=== PATIENT | female | born 1985 | race Caucasian/White ===

== ENCOUNTER → 2017-08-05 | Outpatient (CLI) | payer MEDICAID ==
--- NOTE | 2017-08-05 23:39 | MR ---
EXAMINATION TYPE: MR lumbar spine wo con DATE OF EXAM: 08/05/2017 COMPARISON: NONE HISTORY: LBP, yao leg numbness x 2-3 months TECHNIQUE: Multiplanar, multisequence images of the lumbar spine were acquired. There is L5 spondylolysis. There is 6 mm L5-S1 spondylolisthesis. There is no spinal stenosis. Lumbar nerve roots appear normal. Neural foramina are fairly well-maintained. There is no lumbar disc herni ation. I see no focal bone destruction. There is no lumbar paraspinal mass. Sacroiliac joints appear normal. Disc spaces overall are fairly well-maintained. IMPRESSION: There is L5 spondylolysis with mild first-degree L5-S1 spondylolisthesis. No disc herniation. No spin al stenosis.
== END | disposition home or self-care (01) ==
LOC: RADMRIMAIN 20:20
PROVIDERS: ATTEND Family Medicine
DX: M43.17 Spondylolisthesis, lumbosacral region (principal); M47.896 Other spondylosis, lumbar region
CPT/HCPCS: 72148

== ENCOUNTER 2017-08-19 09:19 | Emergency (ER) | payer MEDICAID ==
[2017-08-19 09:25] VITALS: TEMP 98.6
[2017-08-19] MEDS ORDERED: SODIUM CHLORIDE 0.9% 1,000 ML IV ONE (10:05)
[2017-08-19] MEDS ORDERED: RX INFO: IV CONTRAST WAS GIVEN 1 EACH MISC MISCELLANE PRN (10:05)
[2017-08-19 10:35] LABS: Basophils % (A) 0 %; Eosinophils # (A) 0.2 k/uL (0-0.7); Eosinophils % (A) 4 %; HCT 34.9 % (34.0-46.0); HGB 11.4 gm/dL (11.4-16.0); Lymphocytes # (A) 1.6 k/uL (1.0-4.8); Lymphocytes % (A) 32 %; MCHC 32.6 g/dL (31.0-37.0); MCV 82.8 fL (80.0-100.0); Mean Platelet Volume 7.9; Monocytes # (A) 0.3 k/uL (0-1.0); Monocytes % (A) 6 %; Neutrophils # (A) 2.7 k/uL (1.3-7.7); Neutrophils % (A) 54 %; Platelet Count 279 k/uL (150-450); RBC 4.21 m/uL (3.80-5.40); RDW 14.7 % (11.5-15.5); WBC 4.9 k/uL (3.8-10.6)
[2017-08-19 10:40] LABS: HCG,Qualitative Serum Not Detected
[2017-08-19 10:43] LABS: Anion Gap 9 mmol/L; Blood Urea Nitrogen 11 mg/dL (7-17); Calcium 9.6 mg/dL (8.4-10.2); Carbon Dioxide 27 mmol/L (22-30); Chloride 104 mmol/L (98-107); Glucose 96 mg/dL (74-99); Potassium 3.9 mmol/L (3.5-5.1); Sodium 140 mmol/L (137-145)
--- NOTE | 2017-08-19 11:42 | CT ---
EXAMINATION TYPE: CT brain wo con DATE OF EXAM: 08/19/2017 COMPARISON: NONE HISTORY: Right sided lower facial numbness CT DLP: 926.50 mGycm. Automated Exposure Control for Dose Reduction was Utilized. TECHNIQUE: CT scan of the head is performed without contrast. FINDINGS: There is no acute intracranial hemorrhage, mass effect, or midline shift identified. The ventricles and sulci are within normal limits in size. The globes are intact and the visualized sin uses are clear. IMPRESSION: No acute intracranial hemorrhage, mass effect, or midline shift is seen. If there is con cern for acute ischemia correlate with MRI as clinically warranted.
--- NOTE | 2017-08-19 11:52 | CT ---
EXAMINATION TYPE: CT angio head neck DATE OF EXAM: 08/19/2017 HISTORY: Right sided lower facial numbness COMPARISON: NONE CT DLP: 492.50 mGycm. Automated Exposure Control for Dose Reduction was Utilized. TECHNIQUE: CTA scan of the neck is performed with IV Contrast, patient injected with 65 mL of Omnipa que 350, axial images are obtained, coronal and sagittal reformatted images are reviewed. Three-D rec onstructed images are created on an independent workstation and reviewed. FINDINGS: Carotid arteries are patent. Carotid bifurcation patent bilaterally. Right vertebral artery appears dominant. Vertebrobasilar system is patent. Evaluation the [place] demonstrates no evidence of aneurysm. IMPRESSION: No significant abnormality is seen.
--- NOTE | 2017-08-19 13:22 | ED ---
General Adult HPI - General Chief complaint: Neuro Symptoms/Deficit Stated complaint: facial numbness Time Seen by Provider: 08/19/17 09:53 Source: patient Mode of arrival: ambulatory Limitations: no limitations - History of Present Illness Initial comments: Patient is a 32-year-old female presents with a chief complaint of neurological problems. The patient states that over the last 3 months or so, her right posterior calf has been no trauma. Patient has been seen by her primary care doctor regarding this issue, had an EMG, and an x-ray of the lumbar spine. She was ultimately diagnosed with arthritis. The patient states though that for about 2 days or so, she has been having burning type pain on her lateral right thigh, and today noticed that she had paresthesias of her right lower face. Patient states that she does not notice any motor deficit. She is able to phonate properly without any difficulty. She is not slurring her words, patient is not having any difficulties with coordination. The patient cannot identify inciting incident. There are no aggravating or alleviating factors. Timing is constant. Patient does not have any other medical history, she had her IUD removed yesterday. - Related Data Home Medications Medication Instructions Recorded Confirmed Multivitamins, Thera [Multivitamin 1 tab PO DAILY 08/19/17 08/19/17 (formulary)] Allergies Allergy/AdvReac Type Severity Reaction Status Date / Time No Known Allergies Allergy Verified 08/19/17 10:01 Review of Systems ROS Statement: Those systems with pertinent positive or pertinent negative responses have been documented in the HPI. ROS Other: All systems not noted in ROS Statement are negative. Neurological: Reports: paresthesias Past Medical History Additional Past Medical History / Comment(s): arthritis L5/L4 History of Any Multi-Drug Resistant Organisms: None Reported Past Surgical History: Orthopedic Surgery Additional Past Surgical History / Comment(s): right arm and right wrist Past Psychological History: No Psychological Hx Reported Smoking Status: Never smoker Past Alcohol Use History: Occasional Past Drug Use History: None Reported General Exam Limitations: no limitations General appearance: alert, in no apparent distress Head exam: Present: atraumatic, normocephalic Eye exam: Present: normal appearance, PERRL, EOMI. Absent: nystagmus Pupils: Present: normal accommodation ENT exam: Present: normal exam, mucous membranes moist Neck exam: Present: normal inspection. Absent: tenderness, meningismus Respiratory exam: Present: normal lung sounds bilaterally. Absent: respiratory distress, wheezes Cardiovascular Exam: Present: regular rate, normal rhythm GI/Abdominal exam: Present: soft. Absent: distended, tenderness Rectal exam: Present: deferred Extremities exam: Present: other (Patient has some engorgement of her superficial veins bilaterally on the lower extremities however the right appears to be somewhat worse than the left. When questioned, the patient states that this is been this way since her last ). Absent: calf tenderness Back exam: Present: normal inspection Neurological exam: Present: alert, oriented X3, CN II-XII intact, normal gait, other (Patient has no focal neurological deficits, patient is able to discriminate palpation of the face, she states that her deficit on her right side is more of a tingling. Patient is able to do without abnormality, Romberg is negative. Cerebellar testing is within normal limits.). Absent: abnormal gait, motor sensory deficit Psychiatric exam: Present: normal affect, normal mood Skin exam: Present: warm, dry, intact Course Vital Signs 08/19/17 09:21 Temperature 98.6 F Pulse Rate 80 Respiratory 17 Rate Blood Pressure 129/83 O2 Sat by Pulse 100 Oximetry Medical Decision Making - Medical Decision Making Patient presents with a chief complaint of paresthesias of the face and other neurological issues. On initial evaluation, vital signs are stable, patient is in no acute distress. Patient will be evaluated basic labs, test, d- dimer, and CT of the head with and without contrast. Neurologic testing is normal, there is no deficit on initial exam. Given patient's presentation, zoster was considered however there is no rash on the skin, tympanic membranes are normal bilaterally, patient does not have any lesions on the face or intraorally. 1:19 PM Lab evaluation of this patient is unremarkable. Computed tomography scan of the head without contrast shows no acute process. Follow-up CT angiogram of the head and neck showed patent vessels without any abnormalities or evidence of aneurysms. I discussed these findings with the patient. Repeat neuro exam is unchanged. At this time, the patient is reassured that there doesn't appear to be any life-threatening processes taken place. The patient was instructed to follow-up with her primary care doctor and will be supplied with contact information for neurology for neural follow-up. At this time she had her are agreeable with this care plan. Patient was instructed to return to the emergency department if symptoms worsen or change. - Lab Data Result diagrams: 08/19/17 10:20 08/19/17 10:20 Lab Results 08/19/17 08/19/17 08/19/17 Range/Units 10:20 10:20 10:20 WBC 4.9 (3.8-10.6) k/uL RBC 4.21 (3.80-5.40) m/uL Hgb 11.4 (11.4-16.0) gm/dL Hct 34.9 (34.0-46.0) % MCV 82.8 (80.0-100.0) fL MCH 27.0 (25.0-35.0) pg MCHC 32.6 (31.0-37.0) g/dL RDW 14.7 (11.5-15.5) % Plt Count 279 (150-450) k/uL Neutrophils % 54 % Lymphocytes % 32 % Monocytes % 6 % Eosinophils % 4 % Basophils % 0 % Neutrophils # 2.7 (1.3-7.7) k/uL Lymphocytes # 1.6 (1.0-4.8) k/uL Monocytes # 0.3 (0-1.0) k/uL Eosinophils # 0.2 (0-0.7) k/uL Basophils # 0.0 (0-0.2) k/uL D-Dimer 0.25 (<0.60) mg/L FEU Sodium 140 (137-145) mmol/L Potassium 3.9 (3.5-5.1) mmol/L Chloride 104 (98-107) mmol/L Carbon Dioxide 27 (22-30) mmol/L Anion Gap 9 mmol/L BUN 11 (7-17) mg/dL Creatinine 0.68 (0.52-1.04) mg/dL Est GFR (CKD-EPI)AfAm >90 (>60 ml/min/1.73 sqM) Est GFR (CKD-EPI)NonAf >90 (>60 ml/min/1.73 sqM) Glucose 96 (74-99) mg/dL Calcium 9.6 (8.4-10.2) mg/dL HCG, Qual Not Detected Disposition Clinical Impression: Paresthesia Disposition: HOME SELF-CARE Condition: Good Instructions: Meralgia Paresthetica (ED), Paresthesia (ED) Additional Instructions: Follow-up with her primary care doctor and neurology in 1-2 days, return to the emergency department in 12-24 hours for reevaluation if your symptoms worsen or change Referrals: Duke Nieves MD [Primary Care Provider] - 1-2 days Brooklyn Reynoso MD [STAFF PHYSICIAN] - 1-2 days
[2017-08-19 13:41] VITALS: BP 103/57; PULSE 64; RESP 16
== END 2017-08-19 13:41 | disposition home or self-care (01) ==
LOC: EC 09:19
DX: R20.2 Paresthesia of skin (principal)
CPT/HCPCS: 36415; 85379; 80048; 85025; 84703; 70496; 70450; 70498; 99284; 96360; 96361 ×2; Q9967

== ENCOUNTER → 2017-08-26 | Outpatient (CLI) | payer MEDICAID ==
--- NOTE | 2017-08-26 18:15 | US ---
EXAMINATION TYPE: US pelvic complete DATE OF EXAM: 08/26/2017 COMPARISON: NONE CLINICAL HISTORY: Pelvic pain R10.2. Pelvic pain after having IUD removed last week TECHNIQUE: . Transabdominal sonographic images of the pelvis were acquired. Date of LMP: 08/10/2017 EXAM MEASUREMENTS: Uterus: 6.9 x 3.7 x 5.4 cm Endometrial Stripe: 0.9 cm Right Ovary: 3.1 x 1.3 x 1.2 cm Left Ovary: 3.1 x 2.4 x 1.8 cm 1. Uterus: Anteverted wnl 2. Endometrium: wnl 3. Right Ovary: Multiple follicles visualized 4. Left Ovary: wnl 5. Bilateral Adnexa: wnl 6. Posterior cul-de-sac: wnl IMPRESSION: 1. Endometrium measures 9 mm and is slightly heterogeneous which could be secondary to recent procedu re. No fluid within the endometrium. No free fluid within the pelvis. Correlate clinically..
== END | disposition home or self-care (01) ==
LOC: RADUSWWP 15:34
PROVIDERS: ATTEND Obstetrics & Gynecology
DX: N85.8 Other specified noninflammatory disorders of uterus (principal)
CPT/HCPCS: 76856

== ENCOUNTER → 2017-09-07 | Outpatient (CLI) | payer MEDICAID ==
--- NOTE | 2017-09-07 07:44 | MR ---
EXAMINATION TYPE: MR brain wo/w con DATE OF EXAM: 09/07/2017 COMPARISON: CT brain 08/19/2017 HISTORY: Paresthesias, numbness in face and legs TECHNIQUE: Multiplanar, multisequence images of the brain and brainstem is performed without and with IV contras t, utilizing 5.5 mL intravenous Gadavist . FINDINGS: Diffusion weighted images demonstrate no evidence of a recent infarct or other diffusion ab normality. There is no extra-axial fluid collection or significant white matter signal abnormality. The ventricular system and cisternal spaces are normal in size and appearance. The brain volume is age appropriate. Midline structures demonstrate normal morphology. The craniocervical junction appears within normal limits. Post contrast images demonstrate no abnormal enhancement. The dural venous sinuses appear pa tent. White matter: Single punctate 2 mm tiny focus of abnormal signal the left parietal white matter. IMPRESSION: 1. No acute process. Single tiny focus measuring 2 mm of abnormal signal the white matter of the left parietal lobe of doubtful significance.
== END | disposition home or self-care (01) ==
LOC: RADMRIMAIN 06:46
PROVIDERS: ATTEND Psychiatry & Neurology Neurology
DX: R20.2 Paresthesia of skin (principal)
CPT/HCPCS: 70553; A9581

== ENCOUNTER → 2017-10-19 | Outpatient (CLI) | payer MEDICAID ==
--- NOTE | 2017-10-19 16:05 | US ---
EXAMINATION TYPE: Transabdominal DATE OF EXAM: 09/13/17 COMPARISON: NONE CLINICAL HISTORY: Z36 CONFIRM DATES. LMP unknown EXAM PERFORMED: Transvaginal (TV) and Transabdominal (TA). Transvaginal imaging added to better asse ss pole EXAM MEASUREMENTS: GESTATIONAL AGE / DATING Physician Established: Not yet established Dates by LMP: LMP unknown Dates by First Scan: No previous this is first scan Dates by Current Scan for: (6 weeks/2 days) EDC: 06/12/2018 MATERNAL ANATOMY Uterus: 8.8 x 4.9 x 6.2 cm Right Ovary: 3.2 x 1.9 x 1.7 cm Left Ovary: 2.8 x 1.6 x 3.1 cm Post CDS / Adnexa: Small amount of fluid visualized adjacent to the right ovary Presence of free fluid: Yes Presence of corpus luteal cyst: Yes, right ovary measuring 2.1 x 1.4 x 1.5 cm Presence of subchorionic bleed: No GESTATION / SURVEY CRL: 0.54 cm (6 weeks/2 days) Yolk Sac (normal less than 6mm): 2.8 mm Heart Rate: 124 bpm Rhythm: Normal IUP: Viable IUP Date of LMP: Unknown Beta HcG (if available): Not available Live IUP with an SUSHANT of 06/12/2018. Probable corpus luteal cyst visualized right ovary measuring 2.1 x 1.4 x 1.5 cm IMPRESSION: Single live intrauterine with an estimated date of delivery of 06/12/2018 and sonographic a ge of 6 weeks and 2 days.
== END | disposition home or self-care (01) ==
LOC: RADUSWWP 15:00
PROVIDERS: ATTEND Obstetrics & Gynecology
DX: Z36.89 Encounter for other specified antenatal screening (principal); Z3A.01 Less than 8 weeks gestation of pregnancy
CPT/HCPCS: 76801; 76817

== ENCOUNTER → 2017-11-14 | Outpatient (CLI) | payer MEDICAID ==
[2017-11-14 13:12] LABS: HCT 35.8 % (34.0-46.0); HGB 12.1 gm/dL (11.4-16.0); MCH 27.8 pg (25.0-35.0); MCHC 33.8 g/dL (31.0-37.0); MCV 82.3 fL (80.0-100.0); Mean Platelet Volume 7.5; Platelet Count 293 k/uL (150-450); RBC 4.35 m/uL (3.80-5.40); RDW 15.4 % (11.5-15.5); WBC 7.5 k/uL (3.8-10.6)
[2017-11-14 13:17] LABS: Glucose 102 mg/dL (74-99)
[2017-11-14 19:53] LABS: HIV AB P24 Non-Reactive (Non-Reactive); HIV P24 AG Non-Reactive (Non-Reactive)
[2017-11-15 05:08] LABS: Toxoplasma Antibody (IgG) <3.0 IU/mL (<7.2); Toxoplasma Antibody (IgM) <3.0 AU/mL (<8.0)
== END | disposition home or self-care (01) ==
LOC: LABWHC1 12:13
PROVIDERS: ATTEND Obstetrics & Gynecology
DX: O26.811 Pregnancy related exhaustion and fatigue, first trimester (principal); Z3A.00 Weeks of gestation of pregnancy not specified
CPT/HCPCS: 36415; 82565; 82947; 85027; 86762; 86777; 86778; 86780; 86850; 86900; 86901; 87340; 87390

== ENCOUNTER → 2017-11-30 | Outpatient (CLI) | payer MEDICAID ==
--- NOTE | 2017-11-30 17:56 | US ---
EXAMINATION TYPE: Transabdominal DATE OF EXAM: 09/13/17 COMPARISON: US 10/19/2017 CLINICAL HISTORY: O46.91 Bleeding 1st trimester. EXAM PERFORMED: Transabdominal (TA) EXAM MEASUREMENTS: GESTATIONAL AGE / DATING Physician Established: (12 weeks/2 days) EDC: 06/12/2018 Dates by LMP: LMP unknown Dates by First Scan: (12 weeks/2 days) EDC: 06/12/2018 Dates by Current Scan for: (13 weeks/0 days) EDC: 06/07/2018 MATERNAL ANATOMY Uterus: 11.0 x 8.6 x 9.3 cm Right Ovary: 2.3 x 1.7 x 1.9 cm Left Ovary: 3.2 x 1.5 x 1.8 cm Post CDS / Adnexa: wnl Presence of free fluid: No Presence of corpus luteal cyst: No Presence of subchorionic bleed: No GESTATION / SURVEY CRL: 6.7 cm (13 weeks/0 days) Heart Rate: 152 bpm Rhythm: Normal IUP: Viable IUP Date of LMP: Unknown Beta HcG (if available): Not available at this time Viable IUP with an SUSHANT of 06/07/2018 by this exam. IMPRESSION: There is satisfactory growth compared to last exam. No complicating process seen.
== END | disposition home or self-care (01) ==
LOC: RADUSMAIN 17:21
PROVIDERS: ATTEND Obstetrics & Gynecology
DX: O46.91 Antepartum hemorrhage, unspecified, first trimester (principal); Z3A.00 Weeks of gestation of pregnancy not specified
CPT/HCPCS: 76801

== ENCOUNTER → 2018-01-16 | Outpatient (CLI) | payer MEDICAID ==
--- NOTE | 2018-01-16 14:54 | US ---
EXAMINATION TYPE: US OB anatomy transabd DATE OF EXAM: 01/16/2018 COMPARISON: 11/30/2017 HISTORY: 32-year-old female O36.62XO Large for dates, 2nd Trimester Anatomy, TECHNIQUE: Transabdominal (TA) FINDINGS: EXAM MEASUREMENTS: GESTATIONAL AGE / DATING Physician Established: (19 weeks/6 days) EDC: 06/06/2018 (EDC previously reported as 06/12/2018 on the 11/30/2017 study) Dates by Current Scan for: (18 weeks/5 days) EDC: 06/14/2018 SURVEY IUP: Single PLACENTA: Anterior PREVIA: No previa JAZZY: 11.2 cm Normal CERVICAL LENGTH (transabdominal: norm > 3.0cm): 3.8 cm BIOMETRY PRESENTATION: Variable LIE: Transverse lie with head to maternal left BPD: 4.2 cm 18 weeks / 6 days HC: 16.0 cm 18 weeks / 6 days AC: 13.3 cm 18 weeks / 5 days FL: 2.9 cm 18 weeks / 6 days ESTIMATED WEIGHT IN GRAMS: 258.0 grams ESTIMATED WEIGHT IN LBS/OZ: 0 lbs. 9 oz. WEIGHT PERCENTAGE BASED ON ESTABLISHED DATE: 5.8 % HC/AC: 1.2 Normal FL/AC: 21.6 HEART RATE: 142 bpm RHYTHM: Normal ANATOMY SEEN (within normal limits): Lateral Vent (< 1 cm) 0.7 cm Cisterna Magna (< 1.1 cm) 0.4 cm Nuchal Fold (< 0.6 cm) 0.4 cm Cerebellum (varies with age) 1.9 cm Choroid Plexus (bilateral) Midline Falx Cavus Septi Pellucidi Four Chamber Heart Outflow tracts: LVOT/RVOT Stomach Situs Nose / Lips Diaphragm Kidneys (bilateral) (one of the renal pelves measure 1.3 mm, within normal limits) Bladder Cord Insert Three Vessel Cord Longitudinal Spine Transverse Spine Arms (bilateral) Legs (bilateral) ANATOMY SEEN (does not appear within normal limits): ANATOMY NOT SEEN: Single live IUP measuring 18 weeks 5 days IMPRESSION: 1. Single live intrauterine . The reported established gestational age is 19 weeks 6 days (E DC 06/06/2018). We note that the previously reported EDC on 11/30/2017 was different by 6 days (EDC ). 2. Utilizing the currently reported established gestational age, EFW is at the 6th percentile (with f etal biometry placing the gestation at 18 weeks 5 days). Correlate as to if the provided information is correct. Follow-up to assess for appropriate interval growth as clinically indicated. 3. The survey is complete. Visualized structures appear normal.
== END | disposition home or self-care (01) ==
LOC: RADUSWWP 11:06
PROVIDERS: ATTEND Obstetrics & Gynecology
DX: O36.62X0 Maternal care for excessive fetal growth, second trimester, not applicable or unspecified (principal); Z3A.19 19 weeks gestation of pregnancy
CPT/HCPCS: 76811

== ENCOUNTER → 2018-03-08 | Outpatient (CLI) | payer MEDICAID ==
[2018-03-08 10:16] LABS: HGB 11.2 gm/dL (11.4-16.0); MCH 31.4 pg (25.0-35.0); MCHC 32.8 g/dL (31.0-37.0); MCV 95.7 fL (80.0-100.0); Mean Platelet Volume 7.5; Platelet Count 227 k/uL (150-450); RBC 3.55 m/uL (3.80-5.40); RDW 13.7 % (11.5-15.5); WBC 8.8 k/uL (3.8-10.6)
== END | disposition home or self-care (01) ==
LOC: LABWHC1 08:31
PROVIDERS: ATTEND Obstetrics & Gynecology
DX: Z34.82 Encounter for supervision of other normal pregnancy, second trimester (principal); Z3A.00 Weeks of gestation of pregnancy not specified
CPT/HCPCS: 36415; 82950; 85027

== ENCOUNTER → 2018-03-14 | Outpatient (CLI) | payer MEDICAID ==
[2018-03-14 12:57] LABS: Glucose 3 Hour, Gest 102 mg/dL
== END | disposition home or self-care (01) ==
LOC: LABWHC1 08:36
PROVIDERS: ATTEND Obstetrics & Gynecology
DX: O99.810 Abnormal glucose complicating pregnancy (principal); Z3A.00 Weeks of gestation of pregnancy not specified
CPT/HCPCS: 36415; 82951; 82952

== ENCOUNTER → 2018-03-20 | Outpatient (CLI) | payer MEDICAID ==
--- NOTE | 2018-03-20 14:49 | US ---
EXAMINATION TYPE: US OB anatomy transabd DATE OF EXAM: 03/20/2018 COMPARISON: 01/16/2018 HISTORY: [id number] care for excessive growth, Anatomy per order. . S>D TECHNIQUE: Transabdominal (TA) EXAM MEASUREMENTS: GESTATIONAL AGE / DATING Physician Established: (28weeks/2 days) EDC: 06/10/2018 Dates by Current Scan for: (28weeks/0 days) EDC: 06/12/2018 SURVEY IUP: Single PLACENTA: Anterior PREVIA: No previa JAZZY: 14.9 Normal CERVICAL LENGTH (transabdominal: norm > 3.0cm): 3.3m BIOMETRY PRESENTATION: Vertex LIE: Longitudinal BPD: 7.0cm 28 weeks / 0 days HC: 25.6 cm 28 weeks / 0 days AC: 23.5 cm 27 weeks / 6 days FL: 5.5 cm 29 weeks / 0 days ESTIMATED WEIGHT IN GRAMS: 1197 grams ESTIMATED WEIGHT IN LBS/OZ: 2 lbs. 10 oz. WEIGHT PERCENTAGE BASED ON ESTABLISHED DATE: 35.2 % HC/AC: 1.1 Normal FL/AC: 23.4 Normal HEART RATE: 132 bpm RHYTHM: Normal ANATOMY SEEN (within normal limits): * Lateral Vent (< 1 cm) 0.3 cm * Cisterna Magna (< 1.1 cm) 0.5 cm * Cerebellum (varies with age) 3.1 cm Choroid Plexus (bilateral) Midline Falx Cavus Septi Pellucidi Four Chamber Heart Outflow tracts: LVOT/RVOT Stomach Situs Nose / Lips Diaphragm Kidneys (bilateral) Bladder Cord Insert Three Vessel Cord Longitudinal Spine Transverse Spine Arms (bilateral) Legs (bilateral) ANATOMY SEEN (does not appear within normal limits): ANATOMY NOT SEEN: * Nuchal Fold (< 0.6 cm) due to gestational age Single live IUP measuring 28 weeks 0 days IMPRESSION: Single live intrauterine with a sonographic age of 28 weeks and 0 days concordant with the physician established dates. Weight percentage based on established dates of 35%. Note the nuchal fol d is not seen due to gestational age.
== END | disposition home or self-care (01) ==
LOC: RADUSWWP 13:27
PROVIDERS: ATTEND Obstetrics & Gynecology
DX: O36.63X0 Maternal care for excessive fetal growth, third trimester, not applicable or unspecified (principal); Z3A.28 28 weeks gestation of pregnancy
CPT/HCPCS: 76811

== ENCOUNTER → 2018-05-09 | Outpatient (CLI) | payer MEDICAID ==
--- NOTE | 2018-05-09 16:30 | US ---
EXAMINATION TYPE: US OB anatomy transabd DATE OF EXAM: 05/09/2018 COMPARISON: HISTORY: O36.63X0 Large for dates third trimester Anatomy per order. S>D TECHNIQUE: Transabdominal (TA) EXAM MEASUREMENTS: GESTATIONAL AGE / DATING Physician Established: (35 weeks/3 days) EDC: 06/10/2018 Dates by Current Scan for: (34 weeks/6 days) EDC: 06/14/2018 SURVEY IUP: Single PLACENTA: Fundal/Anterior PREVIA: No previa JAZZY: cm CERVICAL LENGTH (transabdominal: norm > 3.0cm): 3.4 cm BIOMETRY PRESENTATION: Vertex BPD: 8.4 cm 33 weeks / 6 days HC: 30.8 cm 34 weeks / 3 days AC: 31.6 cm 35 weeks / 4 days FL: 6.9 cm 35 weeks / 3 days ESTIMATED WEIGHT IN GRAMS: 2615 grams ESTIMATED WEIGHT IN LBS/OZ: 5 lbs. 12 oz. WEIGHT PERCENTAGE BASED ON ESTABLISHED DATE: 41 % HC/AC: 1.0 Normal FL/AC: 22% Normal HEART RATE: 124 bpm RHYTHM: Normal ANATOMY SEEN (within normal limits): Cavus Septi Pellucidi Four Chamber Heart Outflow tracts: LVOT/RVOT Stomach Situs Nose / Lips Diaphragm Kidneys (bilateral) Bladder Three Vessel Cord ANATOMY SEEN (does not appear within normal limits): ANATOMY NOT SEEN: DUE TO LATE GESTATIONAL AGE * Lateral Vent * Cisterna Magna * Cerebellum Choroid Plexus (bilateral) Midline Falx Longitudinal Spine Transverse Spine Arms (bilateral) Legs (bilateral) Cord Insert Live single IUP measuring 34 weeks 6 days. Entire anatomy not visualized due to late gestational age IMPRESSION: 1. Single intrauterine gestation estimated at 34 weeks 6 days based on current ultrasound measurement s. 2. Cardiac activity measures 124 bpm. 3. Due to the late gestational age, small parts evaluation is limited.
== END ==
LOC: RADUSWWP 10:53
PROVIDERS: ATTEND Obstetrics & Gynecology
DX: O36.63X0 Maternal care for excessive fetal growth, third trimester, not applicable or unspecified (principal); Z3A.34 34 weeks gestation of pregnancy
CPT/HCPCS: 76811

== ENCOUNTER 2018-06-08 06:00 | Inpatient (IN) | payer MEDICAID ==
--- NOTE | 2018-06-07 20:09 | P.HPOB ---
History of Present Illness H&P Date: 06/07/18 Chief Complaint: Induction of labor This is a 32-year-old female 4 para 3 with an estimated date of confinement of 06/10/2018, estimated gestational age of 39-5/7 weeks, who presents for induction of labor. She admits to good movement. She denies any rupture of membranes. course is been essentially uncomplicated. labs: GC/comment-negative Hepatitis B surface antigen-negative Rubella-immune Syphilis antibody-negative nonreactive HIV-nonreactive Toxoplasma-negative Random glucose-102 Hemoglobin-12.1 Blood type-A+ Antibody screen-negative Obstetrical ultrasound-normal anatomy One hour Glucola-154ay Three-hour Glucola-within normal limits Group B streptococcus-negative Obstetrical history: . History of 3 vaginal deliveries. Gynecologic history: No history of sexually transmitted diseases. Social history: She is . She works at [employer] Review of Systems Constitutional: Denies chills, Denies fever Eyes: denies blurred vision, denies pain Ears, nose, mouth and throat: Denies headache, Denies sore throat Cardiovascular: Denies chest pain, Denies shortness of breath Gastrointestinal: Reports abdominal pain (irregular contractions), Denies diarrhea, Denies nausea, Denies vomiting Genitourinary: Reports pelvic pain, Reports Musculoskeletal: Reports low back pain Neurological: Reports numbness, Reports weakness Past Medical History Past Medical History: Neurologic Disorder Additional Past Medical History / Comment(s): arthritis L5/L4 History of Any Multi-Drug Resistant Organisms: None Reported Past Surgical History: Orthopedic Surgery Additional Past Surgical History / Comment(s): right arm and right wrist Past Anesthesia/Blood Transfusion Reactions: No Reported Reaction Past Psychological History: No Psychological Hx Reported Smoking Status: Never smoker Past Alcohol Use History: Occasional Past Drug Use History: None Reported - Past Family History Father Additional Family Medical History / Comment(s): Heart Disease Mother Family Medical History: Diabetes Mellitus Medications and Allergies Home Medications Medication Instructions Recorded Confirmed Type Multivitamins, Thera [Multivitamin 1 tab PO DAILY 08/19/17 08/19/17 History (formulary)] Allergies Allergy/AdvReac Type Severity Reaction Status Date / Time No Known Allergies Allergy Verified 08/19/17 10:01 Exam Osteopathic Statement: *. No significant issues noted on an osteopathic structural exam other than those noted in the History and Physical/Consult. HEENT: Within normal limits Heart: Regular rate and rhythm Lungs: Clear to auscultation bilaterally Abdomen: Cervix: 3-1/2 cm/80%/-2 station heart tones: 140s by Doppler Extremities: Negative Homans Assessment and Plan (1) 39 weeks gestation of Status: Acute Code(s): Z3A.39 - 39 WEEKS GESTATION OF SNOMED Code( s): 59658038 Plan: Proceed with oxytocin induction of labor. Epidural anesthesia if desired. Expectant management.
[2018-06-08] MEDS ORDERED: OXYTOCIN 10 UNIT/ML 1 ML VIAL IM PRN (06:12)
[2018-06-08] MEDS ORDERED: CARBOPROST TROMETHAMINE 250 MCG/ML 1 ML AMP IM PRN (06:12)
[2018-06-08] MEDS ORDERED: LACTATED RINGERS 1,000 ML IV SCH (06:12)
[2018-06-08] MEDS ORDERED: LIDOCAINE 1% 20 ML VIAL (10MG/ML) FOR IV START INTRADERMA PRN (06:12)
[2018-06-08] MEDS ORDERED: TERBUTALINE 1 MG/ML VIAL SQ PRN (06:12)
[2018-06-08] MEDS ORDERED: METHYLERGONOVINE 0.2 MG/ML 1 ML AMP IM PRN (06:12)
[2018-06-08] MEDS ORDERED: OXYTOCIN 20 UNITS/1000 ML NS 1,000 ML IV SCH ×2 (06:12→12:58)
[2018-06-08] MEDS ORDERED: LIDOCAINE 1% INJ 10MG/ML (20 ML MDV) SQ PRN (06:12)
[2018-06-08 06:25] VITALS: BMI 27.9
[2018-06-08 06:34] LABS: Basophils % (A) 1 %; Eosinophils # (A) 0.3 k/uL (0-0.7); Eosinophils % (A) 4 %; HGB 12.9 gm/dL (11.4-16.0); Lymphocytes # (A) 1.9 k/uL (1.0-4.8); Lymphocytes % (A) 27 %; MCH 31.1 pg (25.0-35.0); MCV 91.4 fL (80.0-100.0); Monocytes # (A) 0.4 k/uL (0-1.0); Monocytes % (A) 6 %; Neutrophils # (A) 4.3 k/uL (1.3-7.7); Neutrophils % (A) 60 %; Platelet Count 185 k/uL (150-450); RBC 4.16 m/uL (3.80-5.40); WBC 7.2 k/uL (3.8-10.6)
[2018-06-08] MEDS ORDERED: ACETAMINOPHEN TAB 325 MG TAB PO STA (07:36)
[2018-06-08] MEDS ORDERED: BUTORPHANOL 1 MG/ML 1 ML VIAL IV PRN (11:36)
--- NOTE | 2018-06-08 12:21 | P.PROBDLV ---
Vaginal Delivery Note - . Vaginal Delivery Note: The patient progressed to complete dilation after oxytocin induction of labor and artificial rupture of membranes with clear fluid noted. She did receive a half a milligram of Stadol at about 7 cm. Shortly thereafter she felt a strong urge to push. At that point she was found to be 8-9 cm/100%/-1 station. She did give a gentle push and cervix did change to 9-1/2 cm. With one further push , the cervix was complete and she pushed for a couple more pushes before infant' s head came to a crown. With one remaining push, the infant delivered across the perineum followed by the anterior shoulder. Nose and mouth were bulb suctioned at the perineum. With one further push, the remainder the infant easily delivered and was placed on mother's abdomen. Cord was clamped and cut and infant was taken to warmer for evaluation. A viable female infant was noted with scores of 9 at 1 minute and 9 at 5 minutes and infant weight of 7 lbs. 6 oz. Her placenta delivered shortly thereafter, intact, with a three -vessel cord. Her bladder was drained with a catheter to help with uterine contraction. Uterus contracted fairly well after oxytocin was given and uterine massage was carried out. Inspection of the perineum revealed no perineal lacerations. Estimated blood loss is approximately 150 mL. Both mother and are in stable condition.
[2018-06-08] MEDS ORDERED: ACETAMINOPHEN TAB 325 MG TAB PO PRN (12:58)
[2018-06-08] MEDS ORDERED: diphenhydrAMINE 25 MG CAP PO PRN (12:58)
[2018-06-08] MEDS ORDERED: IBUPROFEN 600 MG TAB PO PRN (12:58)
[2018-06-08] MEDS ORDERED: LANOLIN CREAM 5 GM TUBE TOPICAL PRN (12:58)
[2018-06-08] MEDS ORDERED: diphenhydrAMINE 50 MG/ML 1 ML VIAL IVP PRN ×2 (12:58)
[2018-06-08] MEDS ORDERED: BENZOCAINE/MENTHOL SPRAY 1 GM/SPRAY AEROSOL TOPICAL PRN (12:58)
[2018-06-08] MEDS ORDERED: SIMETHICONE 80 MG CHEWABLE PO PRN (12:58)
[2018-06-08] MEDS ORDERED: HYDROCORTISONE 2.5% RECTAL CREAM 30 GM TUBE RECTAL PRN (12:58)
[2018-06-08] MEDS ORDERED: diphenhydrAMINE 50 MG CAP PO PRN (12:58)
[2018-06-08] MEDS ORDERED: WITCH HAZEL 1 EACH MED..PAD TOPICAL PRN (12:58)
[2018-06-08] MEDS ORDERED: ZOLPIDEM 5 MG TAB PO PRN (12:58)
[2018-06-08] MEDS ORDERED: SENNOSIDES-DOCUSATE SODIUM 1 EACH TAB PO SCH (20:00)
[2018-06-09 07:01] LABS: Basophils % (A) 0 %; Eosinophils # (A) 0.3 k/uL (0-0.7); Eosinophils % (A) 2 %; HCT 38.3 % (34.0-46.0); HGB 12.5 gm/dL (11.4-16.0); Lymphocytes % (A) 18 %; MCH 30.4 pg (25.0-35.0); MCHC 32.7 g/dL (31.0-37.0); Mean Platelet Volume 8.7; Monocytes # (A) 0.7 k/uL (0-1.0); Monocytes % (A) 6 %; Neutrophils % (A) 71 %; Platelet Count 190 k/uL (150-450); RBC 4.12 m/uL (3.80-5.40); RDW 14.1 % (11.5-15.5); WBC 11.3 k/uL (3.8-10.6)
--- NOTE | 2018-06-09 07:51 | P.DS ---
Providers Date of admission: 06/08/18 06:01 Expected date of discharge: 06/09/18 Attending physician: Jessie Maldonado Primary care physician: Stated None - Discharge Diagnosis(es) (1) 39 weeks gestation of Current Visit: No Status: Acute Hospital Course: This is a 32-year-old female 4 para 3 at 39-5/7 weeks who presented for induction of labor. She underwent oxytocin induction of labor and delivered vaginally a viable female with scores of 9 at 1 minute and 9 at 5 minutes and weight of 7 lbs. 6 oz. Her course has been uncomplicated. She is breast-feeding. Lochia is decreasing. Her pain is fairly well controlled with ibuprofen. Vital signs are stable. Abdomen is soft with fundus firm and nontender. Extremities show negative Homans. Impression is status post vaginal delivery day #1. Plan is to discharge home today. Routine instructions are given. She is advised to follow up in the office in 6 weeks. She is advised to call the office if she has any further questions or concerns prior to her appointment time. She will be given a prescription for ibuprofen and a breast pump. Procedures: Oxytocin induction of labor Spontaneous vaginal delivery of a viable female infant on 06/08/2018 Patient Condition at Discharge: Stable Plan - Discharge Summary New Discharge Prescriptions: New Ibuprofen [Motrin] 600 mg PO Q6HR PRN #60 tab PRN Reason: Mild Pain Or Fever >= 100.5 No Action Multivitamins, Thera [Multivitamin (formulary)] 1 tab PO DAILY Discharge Medication List Multivitamins, Thera [Multivitamin (formulary)] 1 tab PO DAILY 08/19/17 [History ] Ibuprofen [Motrin] 600 mg PO Q6HR PRN #60 tab 06/09/18 [Rx] Follow up Appointment(s)/Referral(s): Jessie Maldonado DO [Doctor of Osteopathic Medicine] - 6 Weeks Activity/Diet/Wound Care/Special Instructions: Instructions 1. Do not begin any exercise program for 3 weeks. 2. Do not resume sexual relations for 3 weeks or longer if uncomfortable. 3. You may take tub baths or showers at any time. 4. You may use tampons if desired after 3 weeks. 5. Keep the area of episiotomy (stitches) clean and dry. 6. If you are not nursing, wear a good fitting, supportive bra during the day and limit fluid intake for at least 1 week to prevent breast engorgement. 7. Call the office, [phone], within the next week to make appointment for your 6 week checkup if it has not already been made. 8. Report any of the following occurrences to the doctor promptly: a. Heavy, excessive bleeding b. Chills, fever c. Burning or frequency of urination d. Pain or redness and breasts if nursing e. Increasing pain or swelling in episiotomy (stitches). In addition to the above instructions, the following additional should be followed: 1. No heavy lifting or straining (exercising) until after 6 week checkup. 2. Keep abdominal incision clean and dry: You may wear a dressing if more comfortable. 3. Make office appointment for 10 days after going home or as instructed by her doctor. Discharge Disposition: HOME SELF-CARE
[2018-06-09 08:53] VITALS: BP 98/64; PULSE 62; RESP 14; TEMP 97.6
== END 2018-06-09 13:26 | disposition home or self-care (01) | DRG 807 ==
LOC: 4FBP 06:01
PROVIDERS: ADMIT Obstetrics & Gynecology; ATTEND Obstetrics & Gynecology
PROC: 10E0XZZ Delivery of Products of Conception, External Approach (ICD-10-PCS; principal; 2018-06-08)
PROC: 10907ZC Drainage of Amniotic Fluid, Therapeutic from Products of Conception, Via Natural or Artificial Opening (ICD-10-PCS; 2018-06-08)
PROC: 3E033VJ Introduction of Other Hormone into Peripheral Vein, Percutaneous Approach (ICD-10-PCS; 2018-06-08)
DX: O99.89 Other specified diseases and conditions complicating pregnancy, childbirth and the puerperium (principal); M47.816 Spondylosis without myelopathy or radiculopathy, lumbar region; Z37.0 Single live birth; Z3A.39 39 weeks gestation of pregnancy; Z83.3 Family history of diabetes mellitus
CPT/HCPCS: 85025; 86850; 86900; 86901

== ENCOUNTER 2020-04-03 06:00 | Inpatient (IN) | payer OTHER ==
--- NOTE | 2020-04-02 13:26 | P.HPOB ---
History of Present Illness H&P Date: 04/02/20 Chief Complaint: Induction of labor This is a 34 y.o. female, 5, para 4, with an estimated date of confinement of 04/10/2020, estimated gestational age of 39-0/7 weeks, who presents for induction of labor. She does feel frequent contractions and pressure. She also complains of itching alot, but bile acids have been normal. She has complained of shortness of breath since about 23 weeks, but had this with all of her pregnancies. labs: Hepatitis B surface antigen-neg RPR-NR Rubella-immune Blood type-A+ Antibody screen-neg Hemoglobin-12.6 Toxoplasma-neg Random glucose-98 1 hr. GTT-145, 3 hr. GTT-wnl GBS-neg OB Hx: . 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 Review of Systems Constitutional: Denies chills, Denies fever Eyes: denies blurred vision, denies pain Ears, nose, mouth and throat: Denies headache, Denies sore throat Cardiovascular: Reports shortness of breath, Denies chest pain Respiratory: Denies cough Gastrointestinal: Reports abdominal pain (irreg. ctxs.) Genitourinary: Reports pelvic pain, Reports Musculoskeletal: Reports loss of height, Denies myalgias Integumentary: Reports as per HPI Neurological: Denies numbness, Denies weakness Psychiatric: Denies anxiety, Denies depression Past Medical History Additional Past Medical History / Comment(s): arthritis L5/L4 History of Any Multi-Drug Resistant Organisms: None Reported Past Surgical History: Orthopedic Surgery Additional Past Surgical History / Comment(s): right arm and right wrist Past Anesthesia/Blood Transfusion Reactions: No Reported Reaction Past Psychological History: No Psychological Hx Reported Smoking Status: Never smoker Past Alcohol Use History: Occasional Past Drug Use History: None Reported - Past Family History Father Additional Family Medical History / Comment(s): Heart Disease Mother Family Medical History: Diabetes Mellitus Medications and Allergies Home Medications Medication Instructions Recorded Confirmed Type Multivitamins, Thera [Multivitamin 1 tab PO DAILY 08/19/17 06/08/18 History (formulary)] Ibuprofen [Motrin] 600 mg PO Q6HR PRN #60 tab 06/09/18 Rx Allergies Allergy/AdvReac Type Severity Reaction Status Date / Time No Known Allergies Allergy Verified 06/08/18 06:11 Exam Osteopathic Statement: *. No significant issues noted on an osteopathic structural exam other than those noted in the History and Physical/Consult. HEENT: within normal limits Heart: regular rate and rhythm Lungs: clear to auscultation bilaterally Abdomen: Cervix: 3.5-4 cm/70%/-2 heart tones: 150s by doppler Extremities: neg. Homans Assessment and Plan (1) 39 weeks gestation of Status: Acute Code(s): Z3A.39 - 39 WEEKS GESTATION OF SNOMED Code(s): 93860391 Plan: Proceed with oxytocin induction of labor. Expectant management. Epidural anesthesia if desired.
[2020-04-03] MEDS ORDERED: OXYTOCIN 10 UNIT/ML 1 ML VIAL IM PRN (06:22)
[2020-04-03] MEDS ORDERED: LIDOCAINE 1% (10MG/ML) FOR IV START INTRADERMA PRN (06:22)
[2020-04-03] MEDS ORDERED: CARBOPROST TROMETHAMINE 250 MCG/ML 1 ML AMP IM PRN (06:22)
[2020-04-03] MEDS ORDERED: OXYTOCIN 30 UNITS/500 ML NS 30 UNIT in SALINE 1 500ML.BAG IV SCH (06:22)
[2020-04-03] MEDS ORDERED: LACTATED RINGERS 1,000 ML IV SCH (06:22)
[2020-04-03] MEDS ORDERED: LIDOCAINE 0.5% (PF) 5 MG/ML (50 ML SDV) SQ PRN (06:22)
[2020-04-03] MEDS ORDERED: METHYLERGONOVINE 0.2 MG/ML 1 ML AMP IM PRN (06:22)
[2020-04-03] MEDS ORDERED: TERBUTALINE 1 MG/ML VIAL SQ PRN (06:22)
[2020-04-03 06:44] LABS: Basophils % (A) 0 %; Eosinophils # (A) 0.2 k/uL (0-0.7); Eosinophils % (A) 2 %; HCT 34.7 % (34.0-46.0); HGB 11.3 gm/dL (11.4-16.0); Hypochromasia Slight; Lymphocytes # (A) 2.4 k/uL (1.0-4.8); Lymphocytes % (A) 27 %; MCH 26.7 pg (25.0-35.0); MCHC 32.6 g/dL (31.0-37.0); Mean Platelet Volume 8.9; Monocytes # (A) 0.6 k/uL (0-1.0); Monocytes % (A) 7 %; Neutrophils # (A) 5.3 k/uL (1.3-7.7); Neutrophils % (A) 60 %; Platelet Count 235 k/uL (150-450); Poikilocytosis Slight; RBC 4.23 m/uL (3.80-5.40); RDW 14.6 % (11.5-15.5); WBC 8.9 k/uL (3.8-10.6)
--- NOTE | 2020-04-03 12:04 | P.PROBDLV ---
Vaginal Delivery Note - . Vaginal Delivery Note: The patient progressed to complete dilation after oxytocin induction of labor and artificial rupture membranes with clear fluid noted. She did receive epidural anesthesia while in labor. Once reaching complete, she began pushing. Infant's head came to a crown. With one further push, the 's head delivered across the perineum followed by the anterior shoulder and the remainder the body. was placed on mother's abdomen. Nose and mouth were bulb suctioned. Cord was clamped and cut. was taken to warmer for evaluation. A viable female infant was noted with scores of 9 at 1 minute and 9 at 5 minutes and infant weight is 6 lbs. 7 oz Placenta delivered shortly thereafter, intact, with a three-vessel cord. Uterus contracted well after oxytocin was given and uterine massage was carried out. Inspection of the perineum revealed no perineal lacerations. Estimated blood loss was approximately 200 mL's. Her bladder was also emptied with a catheter. Both mother and are in stable condition.
[2020-04-03] MEDS ORDERED: diphenhydrAMINE 50 MG/ML 1 ML VIAL IVP PRN ×2 (12:07)
[2020-04-03] MEDS ORDERED: ACETAMINOPHEN TAB 325 MG TAB PO PRN (12:07)
[2020-04-03] MEDS ORDERED: BENZOCAINE/MENTHOL SPRAY 1 GM/SPRAY AEROSOL TOPICAL PRN (12:07)
[2020-04-03] MEDS ORDERED: diphenhydrAMINE 25 MG CAP PO PRN (12:07)
[2020-04-03] MEDS ORDERED: HYDROCORTISONE 2.5% RECTAL CREAM 30 GM TUBE RECTAL PRN (12:07)
[2020-04-03] MEDS ORDERED: SIMETHICONE 80 MG CHEWABLE PO PRN (12:07)
[2020-04-03] MEDS ORDERED: diphenhydrAMINE 50 MG CAP PO PRN (12:07)
[2020-04-03] MEDS ORDERED: IBUPROFEN 600 MG TAB PO PRN (12:07)
[2020-04-03] MEDS ORDERED: ZOLPIDEM 5 MG TAB PO PRN (12:07)
[2020-04-03] MEDS ORDERED: LANOLIN CREAM 5 GM TUBE TOPICAL PRN (12:07)
[2020-04-03] MEDS ORDERED: OXYTOCIN 20 UNITS/1000 ML NS 1,000 ML IV SCH (12:15)
[2020-04-03] MEDS ORDERED: ROPIVACAINE 100 MG, fentaNYL (PF) 200 MCG in SODIUM CHLORIDE 0.9% 76 ML EPIDURAL ONE (14:47)
[2020-04-03] MEDS ORDERED: SENNOSIDES-DOCUSATE SODIUM 1 EACH TAB PO SCH (20:00)
[2020-04-04 08:37] VITALS: BP 109/65; PULSE 73; RESP 16; TEMP 97.8
[2020-04-04] MEDS ORDERED: MULTIVITAMINS, THERA 1 EACH TAB PO SCH (09:00)
--- NOTE | 2020-04-04 09:09 | P.DS ---
Providers Date of admission: 04/03/20 06:08 Expected date of discharge: 04/04/20 Attending physician: Jessie Maldonado Primary care physician: Stated None - Discharge Diagnosis(es) (1) 39 weeks gestation of Current Visit: No Status: Acute Hospital Course: This is a 34-year-old female 5 para 4 at 39-0/7 weeks who presented for induction of labor. She underwent oxytocin induction of labor and delivered vaginally a viable female with scores of 9 at 1 minute and 9 at 5 minutes and weight of 6 lbs. 7 oz. Her course has been uncomplicated. Lochia is decreasing. Pain is well-controlled with ibuprofen. She is breast-feeding. Vital signs are stable. Abdomen is soft with fundus firm and nontender. Extremities show negative Homans. Impression is status post vaginal delivery day #1. Plan is to discharge home today. Routine instructions are given. She is advised to follow up in the office in 6 weeks for a check. She will be given a prescription for ibuprofen. She is advised to call the office if she has any further questions or concerns prior to her appointment time. Her plans to get a vasectomy. Procedures: Oxytocin induction of labor Spontaneous vaginal delivery of a viable female on 04/03/2020 Patient Condition at Discharge: Stable Plan - Discharge Summary New Discharge Prescriptions: New Ibuprofen [Motrin] 600 mg PO Q6HR PRN #60 tab PRN Reason: Mild Pain Or Fever >= 100.5 Continue Multivitamins, Thera [Multivitamin (formulary)] 1 tab PO DAILY Discharge Medication List Multivitamins, Thera [Multivitamin (formulary)] 1 tab PO DAILY 08/19/17 [History] Ibuprofen [Motrin] 600 mg PO Q6HR PRN #60 tab 04/04/20 [Rx] Follow up Appointment(s)/Referral(s): Jessie Maldonado DO [Doctor of Osteopathic Medicine] - 6 Weeks Activity/Diet/Wound Care/Special Instructions: Instructions 1. Do not begin any exercise program for 3 weeks. 2. Do not resume sexual relations for 3 weeks or longer if uncomfortable. 3. You may take tub baths or showers at any time. 4. You may use tampons if desired after 3 weeks. 5. Keep the area of episiotomy (stitches) clean and dry. 6. If you are not nursing, wear a good fitting, supportive bra during the day and limit fluid intake for at least 1 week to prevent breast engorgement. 7. Call the office, [phone], within the next week to make appointment for your 6 week checkup if it has not already been made. 8. Report any of the following occurrences to the doctor promptly: a. Heavy, excessive bleeding b. Chills, fever c. Burning or frequency of urination d. Pain or redness and breasts if nursing e. Increasing pain or swelling in episiotomy (stitches). In addition to the above instructions, the following additional should be followed: 1. No heavy lifting or straining (exercising) until after 6 week checkup. 2. Keep abdominal incision clean and dry: You may wear a dressing if more comfortable. 3. Make office appointment for 10 days after going home or as instructed by her doctor. Discharge Disposition: HOME SELF-CARE
[2020-04-04 09:56] LABS: Basophils % (A) 0 %; Eosinophils # (A) 0.1 k/uL (0-0.7); Eosinophils % (A) 2 %; HCT 30.2 % (34.0-46.0); Hypochromasia Slight; Lymphocytes # (A) 1.7 k/uL (1.0-4.8); Lymphocytes % (A) 22 %; MCH 26.7 pg (25.0-35.0); MCHC 32.4 g/dL (31.0-37.0); MCV 82.2 fL (80.0-100.0); Mean Platelet Volume 9.8; Monocytes # (A) 0.3 k/uL (0-1.0); Monocytes % (A) 4 %; Neutrophils # (A) 5.5 k/uL (1.3-7.7); Neutrophils % (A) 70 %; Platelet Count 197 k/uL (150-450); Poikilocytosis Slight; RBC 3.68 m/uL (3.80-5.40); RDW 14.6 % (11.5-15.5); WBC 7.8 k/uL (3.8-10.6)
[2020-04-04 10:03] LABS: HGB 9.8 gm/dL (11.4-16.0)
== END 2020-04-04 12:30 | disposition home or self-care (01) | DRG 807 ==
LOC: 4FBP 06:08
PROVIDERS: ADMIT Obstetrics & Gynecology; ATTEND Obstetrics & Gynecology
PROC: 10E0XZZ Delivery of Products of Conception, External Approach (ICD-10-PCS; principal; 2020-04-03)
PROC: 3E0R3BZ Introduction of Anesthetic Agent into Spinal Canal, Percutaneous Approach (ICD-10-PCS; principal; 2020-04-03)
PROC: 00HU33Z Insertion of Infusion Device into Spinal Canal, Percutaneous Approach (ICD-10-PCS; principal; 2020-04-03)
DX: O80 Encounter for full-term uncomplicated delivery (principal); Z37.0 Single live birth; M47.896 Other spondylosis, lumbar region; O99.891 Other specified diseases and conditions complicating pregnancy; Z3A.39 39 weeks gestation of pregnancy; O99.892 Other specified diseases and conditions complicating childbirth; Z83.3 Family history of diabetes mellitus; Z82.49 Family history of ischemic heart disease and other diseases of the circulatory system
CPT/HCPCS: 85025; 86850; 86900; 86901

== ENCOUNTER 2023-03-01 11:09 | Emergency (ER) | payer BC, OTHER ==
[2023-03-01 11:20] VITALS: TEMP 98.1
--- NOTE | 2023-03-01 11:51 | ED ---
General Adult HPI - General Chief complaint: Recheck/Abnormal Lab/Rx Stated complaint: Poss aortic aneurysm sent by OBGYN Time Seen by Provider: 03/01/23 11:13 Source: patient, RN notes reviewed, old records reviewed Mode of arrival: ambulatory Limitations: no limitations - History of Present Illness Initial comments: 37-year-old female presented for evaluation of pulsatile mass in the abdomen. Patient was seen by her ocean export account manager for a yearly exam and was noted to have a pulsatile mass in the upper abdomen. Patient states she believes this has been present for the past 2 months at least. She had been seen by her primary care provider for intermittent abdominal pain and was diagnosed with celiac disease approximately one year ago and has had some intermittent symptoms of heartburn and Roque discomfort since that time. No vomiting. No fever. No current medications other than vitamins. - Related Data Home Medications Medication Instructions Recorded Confirmed Multivitamins, Thera [Multivitamin 1 tab PO DAILY 08/19/17 03/01/23 (formulary)] Allergies Allergy/AdvReac Type Severity Reaction Status Date / Time No Known Allergies Allergy Verified 03/01/23 12:33 Review of Systems ROS Statement: Those systems with pertinent positive or pertinent negative responses have been documented in the HPI. ROS Other: All systems not noted in ROS Statement are negative. Past Medical History Additional Past Medical History / Comment(s): arthritis L5/L4 History of Any Multi-Drug Resistant Organisms: None Reported Past Surgical History: Orthopedic Surgery Additional Past Surgical History / Comment(s): right arm and right wrist Past Anesthesia/Blood Transfusion Reactions: No Reported Reaction Past Psychological History: No Psychological Hx Reported Smoking Status: Never smoker Past Alcohol Use History: Occasional Past Drug Use History: None Reported - Past Family History Father Additional Family Medical History / Comment(s): Heart Disease Mother Family Medical History: Diabetes Mellitus General Exam Limitations: no limitations General appearance: alert, in no apparent distress Head exam: Present: atraumatic, normocephalic Eye exam: Present: normal appearance, PERRL Neck exam: Present: normal inspection. Absent: tenderness Respiratory exam: Present: normal lung sounds bilaterally. Absent: respiratory distress, wheezes Cardiovascular Exam: Present: regular rate, normal rhythm GI/Abdominal exam: Present: soft, other (Aortic pulsations in the epigastrium). Absent: distended, tenderness Extremities exam: Present: normal inspection, normal capillary refill Neurological exam: Present: alert Psychiatric exam: Present: normal affect, normal mood Skin exam: Present: warm, dry, intact Course Vital Signs 03/01/23 03/01/23 11:15 12:35 Temperature 98.1 F Pulse Rate 59 L 53 L Respiratory 16 18 Rate Blood Pressure 139/77 130/81 O2 Sat by Pulse 100 99 Oximetry Medical Decision Making - Medical Decision Making Was pt. sent in by a medical professional or institution (, PA, BOTTOM STOP ATTACHER, urgent care, hospital, or halfway...) When possible be specific @ -No Did you speak to anyone other than the patient for history (EMS, parent, family, police, friend...)? What history was obtained from this source @ -No Did you review nursing and triage notes (agree or disagree)? Why? @ -I reviewed and agree with nursing and triage notes Were old charts reviewed (outside hosp., previous admission, EMS record, old EKG, old radiological studies, urgent care reports/EKG's, halfway records)? Report findings @ -No old charts were reviewed Differential Diagnosis (chest pain, altered mental status, abdominal pain women, abdominal pain men, vaginal bleeding, weakness, fever, dyspnea, syncope, headache, dizziness, GI bleed, back pain, seizure, CVA, palpatations, mental health, musculoskeletal)? @ -[Differential Abdominal Pain Women: Appendicitis, Cholecystitis, diverticulosis, ischemic bowel, pancreatitis, hepatitis, UTI, gastroenteritis, AAA, incarcerated hernia, bowel obstruction, constipation, inflammatory bowel, hepatitis, peptic ulcer disease, splenic infarction, perforated viscus, vulvitis, ovarian torsion, PID, kidney stone, placenta abruption, this is not meant to be an all-inclusive list EKG interpreted by me (3pts min.). @ -Sinus bradycardia rate of 54, ME interval 137, QRS duration 78, QTC [address] segment elevation. X-rays interpreted by me (1pt min.). @ -None done CT interpreted by me (1pt min.). @ -CT abdomen and pelvis was obtained with contrast, shows a normal caliber aorta with very little overlying abdominal fat or soft tissue. No aneurysm. U/S interpreted by me (1pt. min.). @ -None done What testing was considered but not performed or refused? (CT, X-rays, U/S, labs)? Why? @ -None What meds were considered but not given or refused? Why? @ -None Did you discuss the management of the patient with other professionals (professionals i.e. , PA, BOTTOM STOP ATTACHER, lab, RT, psych nurse, social scientist, nurse school, teacher, technology officer, shelter case manager)? Give summary @ -No Was smoking cessation discussed for >3mins.? @ -No Was critical care preformed (if so, how long)? @ -No Were there social determinants of health that impacted care today? How? (Homel essness, low income, unemployed, alcoholism, drug addiction, transportation, low edu. Level, literacy, decrease access to med. care, penitentiary, rehab)? @ -No Was there de-escalation of care discussed even if they declined (Discuss DNR or withdrawal of care, Hospice)? DNR status @ -No What co-morbidities impacted this encounter? (DM, HTN, Smoking, COPD, CAD, Cancer, CVA, ARF, Chemo, Hep., AIDS, mental health diagnosis, sleep apnea, morbid obesity)? @ -None Was patient admitted / discharged? Hospital course, mention meds given and route, prescriptions, significant lab abnormalities, going to OR and other pertinent info. @ -[37-year-old female sent in by the ocean export account manager for evaluation of pulsatile abdominal mass. This does represent the aorta on imaging. Which is normal caliber without pathology. Patient is very thin and has a widened abdominal aponeurosis. Laboratory testing is unremarkable. Patient reassured stable for discharge. Undiagnosed new problem with uncertain prognosis? @ -No Drug Therapy requiring intensive monitoring for toxicity (Heparin, Nitro, Insulin, Cardizem)? @ -No Were any procedures done? @ -No Diagnosis/symptom? @Abdominal pain Acute, or Chronic, or Acute on Chronic? @ -Chronic Uncomplicated (without systemic symptoms) or Complicated (systemic symptoms)? @ -default Side effects of treatment? @ -No Exacerbation, Progression, or Severe Exacerbation? @ -No Poses a threat to life or bodily function? How? (Chest pain, USA, MS, pneumonia, PE, COPD, DKA, ARF, appy, cholecystitis, CVA, Diverticulitis, Homicidal, Suicidal, threat to staff... and all critical care pts) @ -No - Lab Data Result diagrams: 03/01/23 11:49 03/01/23 11:49 Lab Results 03/01/23 03/01/23 03/01/23 Range/Units 11:49 11:49 11:49 WBC 4.0 (3.8-10.6) k/uL RBC 4.54 (3.80-5.40) m/uL Hgb 12.0 (11.4-16.0) gm/dL Hct 37.4 (34.0-46.0) % MCV 82.4 (80.0-100.0) fL MCH 26.5 (25.0-35.0) pg MCHC 32.2 (31.0-37.0) g/dL RDW 15.3 (11.5-15.5) % Plt Count 243 (150-450) k/uL MPV 8.2 Neutrophils % 52 % Lymphocytes % 33 % Monocytes % 8 % Eosinophils % 2 % Basophils % 1 % Neutrophils # 2.1 (1.3-7.7) k/uL Lymphocytes # 1.3 (1.0-4.8) k/uL Monocytes # 0.3 (0-1.0) k/uL Eosinophils # 0.1 (0-0.7) k/uL Basophils # 0.0 (0-0.2) k/uL PT 9.8 (9.0-12.0) sec INR 0.9 (<1.2) APTT 22.8 (22.0-30.0) sec Sodium 135 L (137-145) mmol/L Potassium 3.7 (3.5-5.1) mmol/L Chloride 104 (98-107) mmol/L Carbon Dioxide 24 (22-30) mmol/L Anion Gap 7 mmol/L BUN 9 (7-17) mg/dL Creatinine 0.77 (0.52-1.04) mg/dL Est GFR (CKD-EPI)AfAm >90 (>60 ml/min/1.73 sqM) Est GFR (CKD-EPI)NonAf >90 (>60 ml/min/1.73 sqM) Glucose 111 H (74-99) mg/dL Calcium 9.3 (8.4-10.2) mg/dL Total Bilirubin 0.9 (0.2-1.3) mg/dL AST 40 H (14-36) U/L ALT 37 H (4-34) U/L Alkaline Phosphatase 61 (38-126) U/L Troponin I (0.000-0.034) ng/mL Total Protein 7.2 (6.3-8.2) g/dL Albumin 4.1 (3.5-5.0) g/dL Amylase 68 (30-110) U/L Lipase 68 (23-300) U/L Urine Color Urine Appearance (Clear) Urine pH (5.0-8.0) Ur Specific [place] (1.001-1.035) Urine Protein (Negative) Urine Glucose (UA) (Negative) Urine Ketones (Negative) Urine Blood (Negative) Urine Nitrite (Negative) Urine Bilirubin (Negative) Urine Urobilinogen (<2.0) mg/dL Ur Leukocyte Esterase (Negative) 03/01/23 03/01/23 Range/Units 11:49 12:28 WBC (3.8-10.6) k/uL RBC (3.80-5.40) m/uL Hgb (11.4-16.0) gm/dL Hct (34.0-46.0) % MCV (80.0-100.0) fL MCH (25.0-35.0) pg MCHC (31.0-37.0) g/dL RDW (11.5-15.5) % Plt Count (150-450) k/uL MPV Neutrophils % % Lymphocytes % % Monocytes % % Eosinophils % % Basophils % % Neutrophils # (1.3-7.7) k/uL Lymphocytes # (1.0-4.8) k/uL Monocytes # (0-1.0) k/uL Eosinophils # (0-0.7) k/uL Basophils # (0-0.2) k/uL PT (9.0-12.0) sec INR (<1.2) APTT (22.0-30.0) sec Sodium (137-145) mmol/L Potassium (3.5-5.1) mmol/L Chloride (98-107) mmol/L Carbon Dioxide (22-30) mmol/L Anion Gap mmol/L BUN (7-17) mg/dL Creatinine (0.52-1.04) mg/dL Est GFR (CKD-EPI)AfAm (>60 ml/min/1.73 sqM) Est GFR (CKD-EPI)NonAf (>60 ml/min/1.73 sqM) Glucose (74-99) mg/dL Calcium (8.4-10.2) mg/dL Total Bilirubin (0.2-1.3) mg/dL AST (14-36) U/L ALT (4-34) U/L Alkaline Phosphatase (38-126) U/L Troponin I <0.012 (0.000-0.034) ng/mL Total Protein (6.3-8.2) g/dL Albumin (3.5-5.0) g/dL Amylase (30-110) U/L Lipase (23-300) U/L Urine Color Colorless Urine Appearance Clear (Clear) Urine pH 6.5 (5.0-8.0) Ur Specific [place] 1.027 (1.001-1.035) Urine Protein Negative (Negative) Urine Glucose (UA) Negative (Negative) Urine Ketones Negative (Negative) Urine Blood Negative (Negative) Urine Nitrite Negative (Negative) Urine Bilirubin Negative (Negative) Urine Urobilinogen <2.0 (<2.0) mg/dL Ur Leukocyte Esterase Negative (Negative) Disposition Clinical Impression: Abdominal pain Disposition: HOME SELF-CARE Condition: Good Instructions (If sedation given, give patient instructions): Abdominal Pain (ED) Is patient prescribed a controlled substance at d/c from ED?: No Referrals: Wilmer Martinez DO [Primary Care Provider] - 1-2 days Time of Disposition: 13:25
[2023-03-01 12:05] LABS: Basophils % (A) 1 %; Eosinophils # (A) 0.1 k/uL (0-0.7); Eosinophils % (A) 2 %; HCT 37.4 % (34.0-46.0); Lymphocytes # (A) 1.3 k/uL (1.0-4.8); Lymphocytes % (A) 33 %; MCH 26.5 pg (25.0-35.0); MCHC 32.2 g/dL (31.0-37.0); MCV 82.4 fL (80.0-100.0); Mean Platelet Volume 8.2; Monocytes # (A) 0.3 k/uL (0-1.0); Monocytes % (A) 8 %; Neutrophils # (A) 2.1 k/uL (1.3-7.7); Neutrophils % (A) 52 %; Platelet Count 243 k/uL (150-450); RBC 4.54 m/uL (3.80-5.40); RDW 15.3 % (11.5-15.5)
[2023-03-01 12:13] LABS: INR 0.9 (<1.2); Partial Thromboplastin Time 22.8 sec (22.0-30.0); Prothrombin Time 9.8 sec (9.0-12.0)
[2023-03-01 12:37] VITALS: RESP 18
--- NOTE | 2023-03-01 12:44 | CT ---
EXAMINATION TYPE: CT abdomen pelvis w con DATE OF EXAM: 03/01/2023 COMPARISON: None HISTORY: EPIGASTRIC PAIN/ PULSATILE MASS CT DLP: 482.6 mGycm Automated exposure control for dose reduction was used. TECHNIQUE: Helical acquisition of images was performed from the lung bases through the pelvis. Nonio yony IV contrast was administered. Findings: The lung bases are clear. The gallbladder is unremarkable without distention, wall thickening, pericholecystic fluid or gallsto francis. There is no biliary ductal dilatation. There is no focal mass or organomegaly involving the liver, pancreas, spleen or adrenal glands. The kidneys enhance symmetrically and there is no solid renal mass or process. There is no retroperit durham adenopathy or hemorrhage in the caliber the abdominal aorta is normal. The bowel loops are normal in caliber is no dilatation or obstruction. There is no free intraperitone al air or fluid. There is no pelvic mass or adenopathy. The osseous structures are intact. In the periumbilical region, the abdominal aorta is situated between the lumbar vertebral segments ar e and the umbilicus with a paucity of subcutaneous and intraperitoneal fat. Impression:. No significant abnormality seen.
[2023-03-01 12:49] LABS: ALT 37 U/L (4-34); AST 40 U/L (14-36); African American GFR (CKD) >90 (>60 ml/min/1.73 sqM); Albumin 4.1 g/dL (3.5-5.0); Alkaline Phosphatase 61 U/L (38-126); Amylase 68 U/L (30-110); Anion Gap 7 mmol/L; Blood Urea Nitrogen 9 mg/dL (7-17); Calcium 9.3 mg/dL (8.4-10.2); Carbon Dioxide 24 mmol/L (22-30); Chloride 104 mmol/L (98-107); Glucose 111 mg/dL (74-99); Lipase 68 U/L (23-300); Non-African American GFR(CKD) >90 (>60 ml/min/1.73 sqM); Potassium 3.7 mmol/L (3.5-5.1); Sodium 135 mmol/L (137-145); Total Bilirubin 0.9 mg/dL (0.2-1.3); Total Protein 7.2 g/dL (6.3-8.2)
[2023-03-01 13:14] LABS: Appearance,Urine Clear (Clear); Bilirubin,Urine Negative (Negative); Blood,Urine Negative (Negative); Color,Urine Colorless; Glucose,Urine (UA) Negative (Negative); Ketones,Urine Negative (Negative); Leukocyte Esterase,Urine Negative (Negative); Nitrite,Urine Negative (Negative); PH, Urine 6.5 (5.0-8.0); Protein,Urine Negative (Negative); Specific Gravity,Urine 1.027 (1.001-1.035); Urobilinogen,Urine <2.0 mg/dL (<2.0)
[2023-03-01 13:55] VITALS: BP 107/73; PULSE 50
== END 2023-03-01 13:51 | disposition home or self-care (01) ==
LOC: EC 11:09
DX: R10.13 Epigastric pain (principal)
CPT/HCPCS: 36415; 93005; 80053; 82150; 83690; 84484; 85025; 85610; 85730; 81003; 74177; 99284; Q9967